=== PATIENT | female | born 1995 | race Caucasian/White ===

== ENCOUNTER 2023-05-17 09:00 | Outpatient (RCR) | payer BC, SELFPAY ==
[2023-05-17 08:07] VITALS: BMI 40.4
== END 2023-08-01 10:53 | disposition home or self-care (01) ==
LOC: ANHDMC 09:00
DX: O24.113 Pre-existing type 2 diabetes mellitus, in pregnancy, third trimester (principal); Z3A.32 32 weeks gestation of pregnancy; Z71.3 Dietary counseling and surveillance
CPT/HCPCS: 97802

== ENCOUNTER 2024-02-21 05:50 | Observation (INO) | payer BC, SELFPAY ==
[2024-02-21] VITALS (14 sets, daily range): BP systolic 97–130; BP diastolic 58–91; PULSE 56–81; RESP 12–20; TEMP 36.2–36.9; O2SAT 94–100; BMI 39.8
--- NOTE | ~2024-02-21 | CT_ITS ---
EXAMINATION: CT abdomen pelvis w con DATE: 02/21/2024 10:21 INDICATION: Abdominal pain. TECHNIQUE: Computed tomography (CT) of the abdomen and pelvis was performed with 100 mL Omnipaque 350 intravenous contrast. Automated exposure control and iterative reconstruction technique were employe d. The dose-length product was 1189.00 mGy-cm. COMPARISON: Ultrasound abdomen 02/21/24 FINDINGS: The visualized portions of the lung bases demonstrate minimal atelectasis. No pleural effus ion. The heart size is normal. No pericardial effusion. The liver and spleen are normal. The gallblad dennis is distended. Gallbladder wall thickening is noted. The pancreas, adrenal glands, and kidneys are normal. The appendix is normal. There are no dilated loops of bowel. There are no pathologically enl arged lymph nodes. There is no free intraperitoneal fluid. There is mild lumbar spondylosis. IMPRESSION: 1. Acute cholecystitis. Reviewed, dictated and finalized at location A. IMPRESSION: 1. Acute cholecystitis.
--- NOTE | ~2024-02-21 | US_ITS ---
Limited Abdominal Sonogram: Real-time sonographic imaging of the right upper quadrant was performed. Clinical History: Abdominal pain Findings: The liver appears normal with no evidence of mass lesion or bile duct dilatation. Main por evy vein demonstrates normal direction of flow. The gallbladder is well distended, and contains small layering gallstones. No bilateral thickening. The common bile duct measures 6 mm. The visualized pa ncreas, aorta, and IVC are unremarkable. Impression: Cholelithiasis. Reviewed, dictated and finalized at location M. Impression: Cholelithiasis.
--- NOTE | ~2024-02-21 | MR_ITS ---
EXAMINATION: MR MRCP wo/w con/w 3D wo ind DATE: 02/22/2024 11:39 INDICATION: Cholelithiasis. Abnormal liver function tests. TECHNIQUE: Magnetic resonance imaging (MRI) of the abdomen was performed without and with 20 mL Multi Toni intravenous contrast. Sequences included coronal T2-weighted FS FSE, coronal T2-weighted FSE, a xial T1-weighted LAVA, coronal FS FIESTA, axial dual-echo T1-weighted SPGR, coronal lava-FLEX, sagitt al T2-weighted FSE, axial T2-weighted FSE, and axial DWI. Thick-slab T2-weighted FSE images were obta ined for magnetic resonance cholangiopancreatography (MRCP). Maximum intensity projection 3-D reconst ructions of the volumetric data were created by the technologist. Postcontrast sequences included cor onal LAVA-flex and time course of axial T1-weighted LAVA. COMPARISON: CT abdomen and pelvis 02/21/2024 FINDINGS: ABDOMEN MRI: There is a trace right pleural effusion. The liver and spleen are normal. There are gall stones in the gallbladder, which is distended. Gallbladder wall thickening is noted. The pancreas, ad renal glands, and kidneys are normal. There are no dilated loops of bowel. There are no pathologicall y enlarged lymph nodes. There is no free intraperitoneal fluid. ABDOMEN MRCP: The common duct is normal and measures 5 mm. No choledocholithiasis. IMPRESSION: 1. Acute cholecystitis. 2. No choledocholithiasis. Reviewed, dictated and finalized at location A.
[2024-02-21 06:17] LABS: Basophils Percent Auto 0.3 % (0.2-1.2); Eosinophils Absolute Auto 0.1 K/mm3 (0-0.3); Hematocrit 42.8 % (37.0-47.0); Hemoglobin 14.7 g/dL (12.0-15.0); Immature Granulocyte Absolute 0.03 K/mm3 (0.00-0.031); Immature Granulocyte Percent A 0.3 % (0-0.5); Lymphocytes Absolute Auto 2.71 K/mm3 (0.9-3.2); Mean Corpuscular HGB Conc 34.3 g/dl (32-36); Mean Corpuscular Hemoglobin 29.9 pg (26-34); Mean Platelet Volume 8.9 fl (7.4-10.4); Monocytes Absolute Auto 0.5 K/mm3 (0.1-0.6); Monocytes Percent Auto 5.1 % (2.6-8.5); Neutrophils Percent Auto 64.3 % (45.5-73.1); Platelet Count Result 240 k/mm3 (150-375); Red Blood Count 4.92 M/mm3 (4.2-5.4); Red Cell Distribution Width 12.6 % (11.5-14.5); White Blood Count 9.3 K/mm3 (4.5-10.0)
[2024-02-21 06:25] LABS: Appearance Urine Clear (Clear); Bilirubin Urine Negative (Negative); Blood Urine Negative (Negative); Color Urine Yellow (Yellow); Glucose Urine UA Negative (Negative); Ketones Urine Trace mg/dL (Negative); Leukocyte Esterase Ur Negative LEU/UL (Negative); Nitrate Urine Negative (Negative); Protein Urine Negative (Negative); Specific Grav Ur 1.028 (1.001-1.035)
[2024-02-21 06:26] LABS: Alanine Aminotransferase 84 U/L (6-35); Alkaline Phosphatase 166 U/L (38-126); Anion Gap 6 mmol/L (4-12); Aspartate Amino Transferase 129 U/L (14-36); Bilirubin,Total 0.7 mg/dL (0.2-1.3); Blood Urea Nitrogen 21 mg/dL (7-17); Calcium 9.4 mg/dL (8.4-10.2); Carbon Dioxide 24 mmol/L (22-30); Chloride 107 mmol/L (98-107); Estimated CRCL calculation 136 ml/min; Estimated Glomerular Filt Rate > 60; Glucose 133 mg/dL (65-110); Lipase 58 U/L (23-300); Sodium 137 mmol/L (137-145)
[2024-02-21 06:34] LABS: Add Urine Microscopic? NO
--- NOTE | 2024-02-21 07:18 | ED.ABDPAIN ---
HPI - Abdominal Pain General Chief Complaint: Abdominal Pain Stated Complaint: abdominal pain Time Seen by Provider: 02/21/24 06:54 History of Present Illness HPI narrative: 28-year-old female presenting to the emergency department for evaluation intermittent upper abdominal pain. Patient just had a approximately 8 months ago and is currently . Patient denies any prior history of other abdominal surgeries other than the . Patient describes a worsening upper abdominal pain that is bilateral. patient initially declined any medications for pain control due to her Related Data Home Medications Medication Instructions Recorded Confirmed No Home Medications 02/21/24 02/21/24 Allergies Allergy/AdvReac Type Severity Reaction Status Date / Time No Known Allergies Allergy Verified 02/21/24 05:59 Review of Systems Review of Systems: All systems reviewed & are unremarkable except as noted in HPI and below PMFSH Social History Social History Smoking status: Never smoker Alcohol intake: current Drinks per week: 3 Substance use: former Substance use type: marijuana Do You Feel Safe in your Home?: Yes Lack of Transportation: No Lack of Food: Never True Current Housing: I Have Housing Concerned About Future Housing: No Difficulty Paying Gas/Electric Bills: No Difficulty Paying for Meds: No Currently Unemployed: No Education: Master's Degree or Higher Difficulty w/ Childcare or Family Care: No Spiritual care concerns: No Exam Narrative: APPEARANCE: Well appearing, no pain, no distress, well-nourished. HEAD: normocephalic, atraumatic. EYES: PERRLA/EOMI, conjunctivae clear. NOSE: Normal no drainage NECK: Supple. No adenopathy, no masses. RESPIRATORY: Airway patent, respirations nonlabored. Clear to auscultation bilaterally, no rales, rhonchi, wheezing. CARDIOVASCULAR: Regular rate and rhythm without murmurs rubs or gallops. ABDOMINAL: bilateral upper abdominal tenderness to palpation MUSCULOSKELETAL: Moves all extremities. Strength/ROM intact, No edema, No calf tenderness. NEURO: Alert. Cranial nerves II through XII intact. Good gait. Good coordination SKIN: Warm, dry. Normal Color Course Course Emergency Course: case was discussed with surgery had patient was admitted for concern of acute cholecystitis Vital Signs Vital signs: Vital Signs Temperature 98.5 F 02/21/24 05:52 Pulse Rate 77 02/21/24 05:52 Respiratory Rate 19 02/21/24 05:52 Blood Pressure 102/71 02/21/24 05:52 Pulse Oximetry 100 02/21/24 05:52 Oxygen Delivery Room Air 02/21/24 05:52 Temperature 97.8 F 02/21/24 12:30 Pulse Rate 60 02/21/24 12:30 Respiratory Rate 18 02/21/24 12:30 Blood Pressure 97/70 L 02/21/24 12:30 Pulse Oximetry 99 02/21/24 12:30 Oxygen Delivery Room Air 02/21/24 19:53 MDM - Abdominal Pain MDM Narrative Medical decision making narrative: 28-year-old female presenting to the emergency department for evaluation of multiple days so of right upper quadrant pain. Patient is afebrile with no leukocytosis and hemoglobin of 14.7. Patient did have some minor elevations in her AST ALT and alk-phos with normal lipase and normal T bili. No evidence of any urinary tract infection. Ultrasound showed cholelithiasis but due to the patient having persistent pain CT scan was ordered and did show evidence of acute cholecystitis. Case was discussed with surgery. Patient did not feel comfortable with the potential plan for discharge home and outpatient follow-up. Patient ultimately did require narcotic pain medication for pain control. Differential Diagnosis Differential diagnosis: Likely abdominal pain, acute appendicitis, calculus of kidney, constipation, diverticulitis, pancreatitis, small bowel obstruction and other ( Cholelithiasis, acute cholecystitis) Lab D
[2024-02-21] MEDS: PANTOPRAZOLE SODIUM IV 40 MG VIAL IV PUSH (07:31)
[2024-02-21] MEDS: ONDANSETRON INJ 4 MG/2 ML VIAL IV PUSH ×5 (07:31→23:54)
[2024-02-21] MEDS: SODIUM CHLORIDE 0.9% IV 1,000 ML 999 ML IV CONT (07:31)
[2024-02-21] MEDS: KETOROLAC 15 MG/ML VIAL (*BKC) IV PUSH (09:17)
[2024-02-21] MEDS: HYDROmorphone HCL INJ (*CRX) 1 MG/ML SYR IV PUSH (10:25)
[2024-02-21] MEDS: SODIUM CHLORIDE 0.9% IV 1,000 ML 125 ML IV CONT ×2 (11:40→19:52)
[2024-02-21] MEDS: PIPERACILLN/TAZ 3.375GM/NS50ML 3.375 GM/50 ML BAG IVPB ×3 (11:52→23:54)
--- NOTE | 2024-02-21 13:44 | PM.IMHP ---
H&P: HPI History of Present Illness Date/Time: 02/21/24 13:44 Chief Complaint: abdominal pain and cholelithiasis, acute cholecystitis. Narrative: Patient is a 28-year-old female who was admitted through the emergency room this morning complaining of a 2 to 3 day history of worsening right upper quadrant abdominal pain. She is 8 months . She is still breast-feeding. Did not have any symptoms of right upper quadrant pain or nausea with eating prior to her . Workup in emergency room showed a normal white blood cell count 9600. Liver enzymes were slightly elevated but her total bilirubin was normal. Abdominal ultrasound revealed some small gallstones and sludge but no pericholecystic fluid. CT scan abdomen pelvis was done showing a dilated gallbladder with very small amount of pericholecystic fluid but no phlegmon in the right upper quadrant. This was interpreted as acute cholecystitis. She did have a but no other abdominal surgery. Review of Systems Review of Systems: The remainder of the review of systems to include constitutional, HEENT, cardiovascular, respiratory, GI, , integumentary, musculoskeletal, endocrine, immunologic, hematologic, psychiatric, and neurologic are all negative except for which is mentioned above in the HPI. [facility] Social History Social History Spiritual care concerns: No Meds Home Medications and Allergies Allergies Allergy/AdvReac Type Severity Reaction Status Date / Time No Known Allergies Allergy Verified 02/21/24 05:59 Vital Signs Vital Signs - 24 hr 02/21/24 05:52 02/21/24 06:50 02/21/24 07:50 Temperature 36.9 C Pulse Rate 77 70 68 Respiratory Rate 19 18 16 Blood Pressure 102/71 108/73 130/86 Pulse Oximetry 100 99 100 Oxygen Delivery Room Air 02/21/24 08:01 02/21/24 08:22 02/21/24 08:45 Temperature Pulse Rate 81 65 64 Respiratory Rate 17 12 19 Blood Pressure 109/71 117/81 127/89 Pulse Oximetry 99 100 Oxygen Delivery 02/21/24 09:00 02/21/24 09:45 02/21/24 10:00 Temperature Pulse Rate 60 73 66 Respiratory Rate 13 15 12 Blood Pressure 117/85 112/91 H 113/76 Pulse Oximetry 100 98 98 Oxygen Delivery 02/21/24 10:25 02/21/24 11:00 02/21/24 11:21 Temperature Pulse Rate 76 63 65 Respiratory Rate 14 16 13 Blood Pressure 119/81 102/58 L Pulse Oximetry 99 94 95 Oxygen Delivery 02/21/24 12:30 Temperature 36.6 C Pulse Rate 60 Respiratory Rate 18 Blood Pressure 97/70 L Pulse Oximetry 99 Oxygen Delivery Exam Const: General: comfortable and no acute distress HENMT: Ears: TM's normal bilaterally Face/Nose/Sinus: Normal nares present Mouth: Yes moist mucous membranes Eyes: General: appearance normal, both eyes and all related structures Sclera: sclerae normal (No scleral icterus) Pupils: Equal, round and reactive pupils present EOM: EOMs intact bilaterally Neck: Neck: supple and no JVD Resp: Effort & Inspection: normal respiratory effort Auscultation: clear to auscultation bilaterally Cardio: Rate: regular rate Rhythm: regular rhythm GI: Other: Abdomen is soft obese. Mild tenderness to palpation right upper quadrant. Gallbladder is not palpable. No generalized peritoneal signs. No surgical scars aside from a low transverse Pfannenstiel scar which is well-healed without evidence of incisional hernia. Skin: General skin exam: normal color and no rashes or lesions noted Neuro: General: gait normal Speech: normal speech Motor exam (neuro): 5/5 motor strength present throughout Sensory Exam: normal sensation Extrem: General: normal to inspection Psych: Mental Status: mental status grossly normal Affect: normal affect H&P: Results Labs Labs: Short CBC 02/21/24 Range/Units 06:01 WBC 9.3 (4.5-10.0) K/mm3 Hgb 14.7 (12.0-15.0) g/dL Hct 42.8 (37.0-47.0) % Plt Count 240 (150-375) k/mm3 BMP
--- NOTE | 2024-02-21 16:54 | PC.NURSE ---
This patient, Larry Gale, was admitted to Medical Room 340-01. Patient/family oriented to hospital policies and general routines including ID bracelet, bed and alarms, visiting hours, pain management, procedures, bathroom and other care routines, personal items, smoking policy, room service/diet, and visiting hours. Information on how to activate the Rapid Response Team has been discussed. Patient/Family are encouraged to report perceived risks to care and to ask questions if they do not understand what they are told or what they should do.
[2024-02-21] MEDS: HYDROmorphone HCL INJ (*CRX) 1 MG/ML SYR 0.5 MG IV PUSH (21:37)
[2024-02-22] MEDS: HYDROmorphone HCL INJ (*CRX) 1 MG/ML SYR 0.5 MG IV PUSH ×5 (03:05→22:20)
[2024-02-22] MEDS: ONDANSETRON INJ 4 MG/2 ML VIAL IV PUSH ×3 (05:27→21:09)
[2024-02-22] MEDS: PIPERACILLN/TAZ 3.375GM/NS50ML 3.375 GM/50 ML BAG IVPB ×4 (05:29→23:28)
[2024-02-22 05:40] LABS: Basophils Percent Auto 0.5 % (0.2-1.2); Eosinophils Absolute Auto 0.1 K/mm3 (0-0.3); Eosinophils Percent Auto 1.7 % (0-4.4); Hematocrit 40.2 % (37.0-47.0); Hemoglobin 13.4 g/dL (12.0-15.0); Immature Granulocyte Absolute 0.02 K/mm3 (0.00-0.031); Immature Granulocyte Percent A 0.3 % (0-0.5); Lymphocytes Absolute Auto 1.84 K/mm3 (0.9-3.2); Lymphocytes Percent Auto 31.2 % (18.3-44.2); Mean Corpuscular HGB Conc 33.3 g/dl (32-36); Mean Corpuscular Volume 89.9 fl (80-100); Mean Platelet Volume 8.9 fl (7.4-10.4); Monocytes Absolute Auto 0.4 K/mm3 (0.1-0.6); Monocytes Percent Auto 6.4 % (2.6-8.5); Neutrophils Absolute Auto 3.5 K/mm3 (1.3-6.7); Neutrophils Percent Auto 59.9 % (45.5-73.1); Platelet Count Result 209 k/mm3 (150-375); Red Blood Count 4.47 M/mm3 (4.2-5.4); Red Cell Distribution Width 12.5 % (11.5-14.5); White Blood Count 5.9 K/mm3 (4.5-10.0)
[2024-02-22 05:49] LABS: INR 1.1; Prothrombin Time 14.9 Seconds (11.1-14.7)
[2024-02-22 05:54] LABS: Alanine Aminotransferase 749 U/L (6-35); Albumin Level 3.4 g/dL (3.5-5.1); Alkaline Phosphatase 239 U/L (38-126); Anion Gap 7 mmol/L (4-12); Aspartate Amino Transferase 525 U/L (14-36); Bilirubin,Total 3.1 mg/dL (0.2-1.3); Blood Urea Nitrogen 10 mg/dL (7-17); Calcium 8.2 mg/dL (8.4-10.2); Carbon Dioxide 20 mmol/L (22-30); Chloride 110 mmol/L (98-107); Estimated CRCL calculation 118 ml/min; Estimated Glomerular Filt Rate > 60; Glucose 78 mg/dL (65-110); Potassium 3.9 mmol/L (3.4-5.0); Sodium 137 mmol/L (137-145)
[2024-02-22 06:00] VITALS: BP 94/55; PULSE 77; RESP 18; TEMP 36.5; O2SAT 97
[2024-02-22] MEDS: SODIUM CHLORIDE 0.9% IV 1,000 ML 125 ML IV CONT ×3 (06:37→23:28)
[2024-02-22 08:20] LABS: Lipase 42 U/L (23-300)
[2024-02-22] MEDS: PANTOPRAZOLE SODIUM IV 40 MG VIAL IV PUSH (08:38)
--- NOTE | 2024-02-22 09:26 | WPDGICN ---
Assessment and Plan Assessment and plan (1) Elevated liver enzymes: Code(s): R74.8 - Abnormal levels of other serum enzymes Status: Acute Assessment and Plan: LFTs elevated on admission yesterday and trending upwards today with tbili 0.7->3.1, AST 129->525, ALT 84->749, alk phos 166->239 concerning for common bile duct stone. MRCP today, if stone present will need ERCP. (2) Acute cholecystitis: Code(s): K81.0 - Acute cholecystitis Status: Acute Assessment and Plan: followed by surgery GI Consult Note Consult date/time: 02/22/24 09:26 Reason for consult: Elevated T. Bili, eval for CBD stone HPI: Larry Gale is a 28 year old female who we were ask to see for evaluation of elevated liver function test. She presented to [place] [facility] yesterday for complaints of intermittent upper abdominal pain. Abdominal Ultrasound showed Cholelithiasis with small layering gallstones. CT ABD/Pelvis revealed acute cholecystitis no bile duct dilation noted. LFTs elevated on admission and trending upwards today with tbili 0.7->3.1, AST 129->525, ALT 84->749, alk phos 166->239. Lipase WNls. CBC negative for leukocytosis. She denies any prior hx of elevated LFTs. She rarely drinks alcohol and no hx of IV drug use. no family hx of chronic liver disease or cancers. Review of Systems Constitutional: Constitutional: Denies anorexia and Denies fatigue Eyes: Eyes: Denies change in vision ENT: Denies hoarseness Cardiovascular: Cardiovascular: Denies chest pain Respiratory: Respiratory: Denies cough Gastrointestinal: Gastrointestinal: Reports as per HPI Genitourinary: Genitourinary: Denies urinary frequency Musculoskeletal: Musculoskeletal: Denies abnormal gait and Denies myalgias Integumentary/Breasts: Skin/Breast: Denies rash and Denies jaundice Neurologic: Denies abnormal gait Psychiatric: Psychiatric: Denies change in appetite Endocrine: Endocrine: Denies fatigue Hematologic/Lymphatic: Hematologic/Lymphatic: Denies easy bruising Allergic/Immunologic: Allergic/Immunologic: Denies GI upset with certain foods PMFSH Past Medical History Medical History (Updated 02/22/24 @ 09:43 by Yolanda A. Bosaw, PATHOLOGIST-C) Elevated liver enzymes Social History Social History Smoking status: Never smoker Alcohol intake: current Drinks per week: 3 Substance use: former Substance use type: marijuana Do You Feel Safe in your Home?: Yes Lack of Transportation: No Lack of Food: Never True Current Housing: I Have Housing Concerned About Future Housing: No Difficulty Paying Gas/Electric Bills: No Difficulty Paying for Meds: No Currently Unemployed: No Education: Master's Degree or Higher Difficulty w/ Childcare or Family Care: No Spiritual care concerns: No Meds Home Medications and Allergies Home Medications Medication Instructions Recorded Confirmed Type No Home Medications 02/21/24 02/21/24 History Allergies Allergy/AdvReac Type Severity Reaction Status Date / Time No Known Allergies Allergy Verified 02/21/24 05:59 Vital Signs Vital Signs - 24 hr 02/21/24 09:45 02/21/24 10:00 02/21/24 10:25 Temperature Pulse Rate 73 66 76 Respiratory Rate 15 12 14 Blood Pressure 112/91 H 113/76 119/81 Pulse Oximetry 98 98 99 Oxygen Delivery 02/21/24 11:00 02/21/24 11:21 02/21/24 12:30 Temperature 97.8 F Pulse Rate 63 65 60 Respiratory Rate 16 13 18 Blood Pressure 102/58 L 97/70 L Pulse Oximetry 94 95 99 Oxygen Delivery 02/21/24 19:53 02/21/24 22:00 02/22/24 06:00 Temperature 97.2 F L 97.7 F Pulse Rate 56 L 77 Respiratory Rate 20 18 Blood Pressure 100/60 94/55 L Pulse Oximetry 98 97 Oxygen Delivery Room Air 02/22/24 09:15 Temperature Pulse Rate Respiratory Rate Blood Pressure Pulse Oximetry Oxygen Delivery Room Air Exam Const: General: co
--- NOTE | 2024-02-22 11:42 | PC.NURSE ---
Patient returned from MRI per wheelchair.
--- NOTE | 2024-02-22 13:54 | WPDPN ---
Progress Note: A&P Assessment and Plan (1) Acute cholecystitis: Code(s): K81.0 - Acute cholecystitis Status: Acute Assessment and Plan: Patient continues IV antibiotics. Her pain is not any worse. Blood count is normal. Her laparoscopic cholecystectomy today was canceled liver enzymes markedly elevated. MRCP has been done showing no evidence of retained common bile stone although I suspect she passed a stone last evening. Will reschedule her lap ozzie for tomorrow afternoon. (2) Elevated liver enzymes: Code(s): R74.8 - Abnormal levels of other serum enzymes Status: Acute Assessment and Plan: MRCP performed and no evidence of retained common duct stone presently. May have passed a stone. Continue supportive management. We will proceed with laparoscopic cholecystectomy tomorrow. Continue IV antibiotics. Recheck liver enzymes tomorrow. Subjective Date/time seen: 02/22/24 13:54 Interval history: Patient still having some right upper quadrant abdominal pain. Continues to be NPO except for some ice chips. White blood cell count is normal however her liver enzymes markedly elevated today. Her bilirubin went from 0.7 to 3.1. AST, ALT, and alkaline phosphatase all elevated as well. All suspicious she had a common bile duct stone which was retained or she had passed a common bile duct stone. Consulted GI to see the patient and an MRCP was ordered. The results of the MRCP showed no evidence of retained common bile stone presently. Residual cholelithiasis and sludge is noted. Exam GI: Other: Abdomen is soft and moderately obese. Mild tenderness to palpation right upper quadrant. The gallbladder is not palpable. No peritoneal signs. Objective Data Vital Signs Vital Signs: Vital Signs - 24 hr 02/21/24 19:53 02/21/24 22:00 02/22/24 06:00 Temperature 36.2 C L 36.5 C Pulse Rate 56 L 77 Respiratory Rate 20 18 Blood Pressure 100/60 94/55 L Pulse Oximetry 98 97 Oxygen Delivery Room Air 02/22/24 09:15 Temperature Pulse Rate Respiratory Rate Blood Pressure Pulse Oximetry Oxygen Delivery Room Air Intake/Output Intake/Output: Intake & Output 02/19/24 02/20/24 02/21/24 02/22/24 23:59 23:59 23:59 23:59 Intake Total 2100 1150 Balance 2100 1150 Meds/Results Medications: Active Medications Generic Name Dose Route Start Last Admin Trade Name Nikq PRN Reason Stop Dose Admin Enoxaparin Sodium 40 mg 02/22/24 09:00 02/22/24 07:57 Enoxaparin 40 Mg/0.4 Ml Syringe SUB-Q Not Given DAILY GINNY Hydromorphone HCl 0.5 mg 02/21/24 11:12 02/22/24 09:22 Hydromorphone Hcl Inj (*Crx) 1 Mg/Ml Syr IV PUSH 0.5 mg Q4H PRN Administration Pain Rated 7-10 Piperacillin/Tazobactam/Dextrose 3.375 gm in 50 mls @ 100 mls/hr 02/21/24 12:00 02/22/24 12:35 Zosyn 3.375 Gm/Ns 50 Ml IVPB Infused Q6HR GINNY Infusion Sodium Chloride 1,000 mls @ 125 mls/hr 02/21/24 11:15 02/22/24 13:44 Normal Saline Iv IV CONT Not Given .Q8H GINNY Ondansetron HCl 4 mg 02/21/24 11:12 02/22/24 05:27 Ondansetron Inj 4 Mg/2 Ml Vial IV PUSH 4 mg Q4H PRN Administration Nausea Pantoprazole Sodium 40 mg 02/22/24 09:00 02/22/24 08:38 Pantoprazole Sodium Iv 40 Mg Vial IV PUSH 40 mg QAM GINNY Administration Radiology Results: ITS Impressions Abdomen Ultrasound 02/21/24 08:14 Impression: Cholelithiasis. Abdomen/Pelvis CT 02/21/24 10:29 IMPRESSION: 1. Acute cholecystitis. MRCP 02/22/24 13:05 IMPRESSION: 1. Acute cholecystitis. 2. No choledocholithiasis. Labs Labs: Laboratory Results - last 24 hr 02/22/24 02/22/24 05:19 05:20 WBC 5.9 RBC 4.47 Hgb 13.4 Hct 40.2 MCV 89.9 MCH 30.0 MCHC 33.3 RDW 12.5 Plt Count 209 MPV 8.9 Immature Gran % (Auto) 0.3 Neut % (Auto) 59.9 Lymph % (Auto) 31.2 [place] % (Auto) 6.4 Eos % (Auto) 1.7 Baso % (Auto) 0.5 Lymph # (
[2024-02-22 14:00] VITALS: BP 94/50; PULSE 76; RESP 16; TEMP 36.4; O2SAT 99
[2024-02-22 19:22] LABS: Hepatitis B Surface Antigen Negative (Negative)
[2024-02-22 19:28] LABS: HAV RESULT Negative (Negative); Hepatitis B Core IgM Result Negative (Negative)
[2024-02-22 19:40] LABS: Hepatitis C Virus Antibody Negative (Negative)
[2024-02-22 22:18] VITALS: BP 102/55; PULSE 57; RESP 20; TEMP 36.6; O2SAT 98
[2024-02-23] VITALS (11 sets, daily range): BP systolic 91–128; BP diastolic 48–89; PULSE 57–98; RESP 16–21; TEMP 36.2–36.8; O2SAT 95–100
[2024-02-23] MEDS: HYDROmorphone HCL INJ (*CRX) 1 MG/ML SYR 0.5 MG IV PUSH ×3 (03:58→20:50)
[2024-02-23] MEDS: PIPERACILLN/TAZ 3.375GM/NS50ML 3.375 GM/50 ML BAG IVPB ×2 (05:33→12:08)
[2024-02-23 05:41] LABS: Basophils Percent Auto 0.5 % (0.2-1.2); Eosinophils Absolute Auto 0.1 K/mm3 (0-0.3); Eosinophils Percent Auto 1.7 % (0-4.4); Hematocrit 39.2 % (37.0-47.0); Hemoglobin 13.5 g/dL (12.0-15.0); Immature Granulocyte Absolute 0.01 K/mm3 (0.00-0.031); Immature Granulocyte Percent A 0.2 % (0-0.5); Lymphocytes Absolute Auto 2.13 K/mm3 (0.9-3.2); Lymphocytes Percent Auto 36.6 % (18.3-44.2); Mean Corpuscular HGB Conc 34.4 g/dl (32-36); Mean Corpuscular Hemoglobin 30.8 pg (26-34); Mean Corpuscular Volume 89.5 fl (80-100); Monocytes Absolute Auto 0.4 K/mm3 (0.1-0.6); Monocytes Percent Auto 7.6 % (2.6-8.5); Neutrophils Absolute Auto 3.1 K/mm3 (1.3-6.7); Neutrophils Percent Auto 53.4 % (45.5-73.1); Platelet Count Result 211 k/mm3 (150-375); Red Blood Count 4.38 M/mm3 (4.2-5.4); Red Cell Distribution Width 12.5 % (11.5-14.5); White Blood Count 5.8 K/mm3 (4.5-10.0)
[2024-02-23 06:02] LABS: Alanine Aminotransferase 513 U/L (6-35); Albumin Level 3.4 g/dL (3.5-5.1); Alkaline Phosphatase 241 U/L (38-126); Anion Gap 8 mmol/L (4-12); Aspartate Amino Transferase 158 U/L (14-36); Bilirubin,Total 1.5 mg/dL (0.2-1.3); Blood Urea Nitrogen 6 mg/dL (7-17); Calcium 8.3 mg/dL (8.4-10.2); Carbon Dioxide 18 mmol/L (22-30); Chloride 110 mmol/L (98-107); Estimated CRCL calculation 118 ml/min; Estimated Glomerular Filt Rate > 60; Glucose 81 mg/dL (65-110); Potassium 3.9 mmol/L (3.4-5.0); Sodium 136 mmol/L (137-145)
[2024-02-23] MEDS: PANTOPRAZOLE SODIUM IV 40 MG VIAL IV PUSH (08:06)
[2024-02-23] MEDS: SODIUM CHLORIDE 0.9% IV 1,000 ML 125 ML IV CONT ×2 (08:07→20:49)
--- NOTE | 2024-02-23 12:41 | WPDPN ---
Progress Note: A&P Assessment and Plan (1) Elevated liver enzymes: Code(s): R74.8 - Abnormal levels of other serum enzymes Status: Acute Assessment and Plan: LFTs are not decreasing. She likely was passing a common bile duct stone yesterday. MRCP negative for retained common duct stone. (2) Acute cholecystitis: Code(s): K81.0 - Acute cholecystitis Status: Acute Assessment and Plan: Will proceed with a laparoscopic cholecystectomy possible open cholecystectomy in the operating room today. Risks, benefits, indications, and expected outcomes were discussed with the patient and/or family members. Specific risks to include bleeding and possible need for blood transfusion, infection, bile leak, injury to other organs, common bile duct injury, and conversion to open cholecystectomy has been discussed. I have answered all their questions and they agreed to proceed with surgery as outlined above. Subjective Date/time seen: 02/23/24 12:41 Interval history: Patient still having right upper quadrant abdominal pain. No epigastric pain. MRCP yesterday showed no dilation of the common bile duct and no retained common bile duct stone. Her total bilirubin other liver enzymes have decreased today and so she likely was passing a gallstone yesterday. White blood cell count remains normal today. She tried to tolerate some liquids lasting min had right upper quadrant pain and nausea. Exam GI: Other: Abdomen is soft and moderately obese. Moderate tenderness to palpation right upper quadrant over the area the gallbladder. No guarding or peritoneal signs. Objective Data Vital Signs Vital Signs: Vital Signs - 24 hr 02/22/24 14:00 02/22/24 19:43 02/22/24 22:18 Temperature 36.4 C L 36.6 C Pulse Rate 76 57 L Respiratory Rate 16 20 Blood Pressure 94/50 L 102/55 L Pulse Oximetry 99 98 Oxygen Delivery Room Air 02/23/24 06:00 02/23/24 08:05 Temperature 36.2 C L Pulse Rate 57 L Respiratory Rate 21 H Blood Pressure 110/63 Pulse Oximetry 100 Oxygen Delivery Room Air Intake/Output Intake/Output: Intake & Output 02/20/24 02/21/24 02/22/24 02/23/24 23:59 23:59 23:59 23:59 Intake Total 2100 4109.2 1050 Balance 2100 4109.2 1050 Meds/Results Medications: Active Medications Generic Name Dose Route Start Last Admin Trade Name Freq PRN Reason Stop Dose Admin Enoxaparin Sodium 40 mg 02/22/24 09:00 02/23/24 08:07 Enoxaparin 40 Mg/0.4 Ml Syringe SUB-Q Not Given DAILY GINNY Hydromorphone HCl 0.5 mg 02/21/24 11:12 02/23/24 12:08 Hydromorphone Hcl Inj (*Crx) 1 Mg/Ml Syr IV PUSH 0.5 mg Q4H PRN Administration Pain Rated 7-10 Piperacillin/Tazobactam/Dextrose 3.375 gm in 50 mls @ 100 mls/hr 02/21/24 12:00 02/23/24 12:08 Zosyn 3.375 Gm/Ns 50 Ml IVPB 100 mls/hr Q6HR GINNY Administration Sodium Chloride 1,000 mls @ 125 mls/hr 02/21/24 11:15 02/23/24 08:07 Normal Saline Iv IV CONT 125 mls/hr .Q8H GINNY Administration Ondansetron HCl 4 mg 02/21/24 11:12 02/22/24 21:09 Ondansetron Inj 4 Mg/2 Ml Vial IV PUSH 4 mg Q4H PRN Administration Nausea Pantoprazole Sodium 40 mg 02/22/24 09:00 02/23/24 08:06 Pantoprazole Sodium Iv 40 Mg Vial IV PUSH 40 mg QAM GINNY Administration Radiology Results: ITS Impressions Abdomen Ultrasound 02/21/24 08:14 Impression: Cholelithiasis. Abdomen/Pelvis CT 02/21/24 10:29 IMPRESSION: 1. Acute cholecystitis. MRCP 02/22/24 13:05 IMPRESSION: 1. Acute cholecystitis. 2. No choledocholithiasis. Labs Labs: Laboratory Results - last 24 hr 02/22/24 02/23/24 06:01 05:16 WBC 5.8 RBC 4.38 Hgb 13.5 Hct 39.2 MCV 89.5 MCH 30.8 MCHC 34.4 RDW 12.5 Plt Count 211 MPV 9.0 Immature Gran % (Auto) 0.2 Neut % (Auto) 53.4 Lymph % (Auto) 36.6 [place] % (Auto) 7.6 Eos % (Auto) 1.7 Baso % (Auto) 0.5 Lymph # (Auto) 2.1
--- NOTE | 2024-02-23 12:44 | WPDHPUPDATE1 ---
History and Physical Update Update Date/Time: 02/23/24 12:44 History and Physical has been reviewed, including an updated exam of the patient. There are NO changes in the patient's condition. Risks, benefits, and alternatives have been discussed and questions answered. Patient agrees to proceed with procedure.
--- NOTE | 2024-02-23 14:30 | PC.NURSE ---
Patient to OR per wheelchair.
[2024-02-23] MEDS: LACTATED RINGERS 1,000 ML 30 ML IV CONT ×2 (14:45→17:00)
--- NOTE | 2024-02-23 14:46 | WPDANESEPPF ---
Anes - Initial Pre Proc Eval Procedure: Operation Date: 02/22/24 13:00 Proposed Procedures p Laparoscopic Cholecystectomy,Possible Open - Nayan Medellin MD Operation Date: 02/23/24 15:30 Proposed Procedures p Laparoscopic Cholecystectomy, Possible Open - Nayan Medellin MD Date/Time: 02/23/24 14:46 Surgeon: Nayan Medellin MD Pre Op Diagnosis: Right Upper Quadrant Abd Pain/Acute Cholecystitis Patient Data Age: 28 Gender: F Height: 1.6 m Weight: 102 kg Last Vital Signs Temp 36.2 C L 02/23/24 06:00 Pulse 57 L 02/23/24 06:00 Resp 21 H 02/23/24 06:00 BP 110/63 02/23/24 06:00 Pulse Ox 100 02/23/24 06:00 O2 Del Method Room Air 02/23/24 08:05 Allergies Allergy/AdvReac Type Severity Reaction Status Date / Time No Known Allergies Allergy Verified 02/21/24 05:59 Home Medications Medication Instructions Recorded Confirmed Type No Home Medications 02/21/24 02/21/24 History Laboratory Tests 02/22/24 02/23/24 06:01 05:16 WBC 5.8 K/mm3 (4.5-10.0) RBC 4.38 M/mm3 (4.2-5.4) Hgb 13.5 g/dL (12.0-15.0) Hct 39.2 % (37.0-47.0) MCV 89.5 fl (80-100) MCH 30.8 pg (26-34) MCHC 34.4 g/dl (32-36) RDW 12.5 % (11.5-14.5) Plt Count 211 k/mm3 (150-375) MPV 9.0 fl (7.4-10.4) Immature Gran % (Auto) 0.2 % (0-0.5) Neut % (Auto) 53.4 % (45.5-73.1) Lymph % (Auto) 36.6 % (18.3-44.2) Gove % (Auto) 7.6 % (2.6-8.5) Eos % (Auto) 1.7 % (0-4.4) Baso % (Auto) 0.5 % (0.2-1.2) Lymph # (Auto) 2.13 K/mm3 (0.9-3.2) Gove # (Auto) 0.4 K/mm3 (0.1-0.6) Eos # (Auto) 0.1 K/mm3 (0-0.3) Baso # (Auto) 0.0 K/mm3 (0.0-0.1) Abs Immat Gran (auto) 0.01 K/mm3 (0.00-0.031) Absolute Neuts (auto) 3.1 K/mm3 (1.3-6.7) Absolute Nucleated RBC 0.000 K/mm3 (0.0-0.012) Nucleated RBC % 0.0 % (0.0-0.2) Sodium 136 L mmol/L (137-145) Potassium 3.9 mmol/L (3.4-5.0) Chloride 110 H mmol/L (98-107) Carbon Dioxide 18 L mmol/L (22-30) Anion Gap 8 mmol/L (4-12) BUN 6 L mg/dL (7-17) Creatinine 0.70 mg/dL (0.7-1.0) Estim Creat Clear Calc 118 ml/min Estimated GFR > 60 (59 - ) Glucose 81 mg/dL (65-110) Calcium 8.3 L mg/dL (8.4-10.2) Total Bilirubin 1.5 H mg/dL (0.2-1.3) AST 158 H U/L (14-36) ALT 513 H U/L (6-35) Alkaline Phosphatase 241 H U/L (38-126) Total Protein 6.0 L g/dL (6.3-8.2) Albumin 3.4 L g/dL (3.5-5.1) Hepatitis A IgM Ab Negative (Negative) Hep Bs Antigen Negative (Negative) Hep B Core IgM Ab Negative (Negative) Hepatitis C Ab Screen Negative (Negative) Patient hx anesthesia problems: none Family hx anesthesia problems: none Results Review: All pre-operative results and documents have been reviewed as part of the pre-operative evaluation. [facility] Past Medical History Medical History (Updated 02/23/24 @ 14:46 by Luis Daniel Denis MD) Elevated liver enzymes Morbid obesity Social History Social History Smoking status: Never smoker Alcohol intake: current Drinks per week: 3 Substance use: former Substance use type: marijuana Do You Feel Safe in your Home?: Yes Lack of Transportation: No Lack of Food: Never True Current Housing: I Have Housing Concerned About Future Housing: No Difficulty Paying Gas/Electric Bills: No Difficulty Paying for Meds: No Currently Unemployed: No Education: Master's Degree or Higher Difficulty w/ Childcare or Family Care: No Spiritual care concerns: No Anes - Eval Final PreProcedure Day of Procedure 02/23/24 14:46 Patient weight: morbidly obese Heart: regular rate and rhythm Lungs: clear to auscultation Airwa
--- NOTE | 2024-02-23 16:10 | WPDGIPROGNO ---
Progress Note: A&P Assessment and Plan (1) Acute cholecystitis: Code(s): K81.0 - Acute cholecystitis Status: Acute Assessment and Plan: OR today, MRCP reviewed and no bile duct stones- no need of ercp liver enzymes trending down (2) Elevated liver enzymes: Code(s): R74.8 - Abnormal levels of other serum enzymes Status: Acute (3) RUQ pain: Code(s): R10.11 - Right upper quadrant pain Status: Acute (4) state: Code(s): Z39.2 - Encounter for routine follow-up Status: Acute (5) Nausea: Code(s): R11.0 - Nausea Status: Acute Subjective Date/time seen: 02/23/24 11:50 Interval history: still some pain in ruq Review of Systems Review of Systems: All systems reviewed & are unremarkable except as noted in HPI and below Exam Const: General: comfortable and no acute distress HENMT: Face/Nose/Sinus: Normal nares present Eyes: General: appearance normal, both eyes and all related structures Neck: Neck: supple Resp: Auscultation: clear to auscultation bilaterally Cardio: Rate: regular rate Rhythm: regular rhythm GI: Inspection: non-distended GI Palp: Yes Soft to palpation and Yes Tenderness to palpation present (GI) (mild ttp in ruq) Auscultation: normal bowel sounds Skin: General skin exam: normal color Neuro: General: gait normal Speech: normal speech Extrem: General: normal to inspection Psych: Mental Status: mental status grossly normal Objective Data Vital Signs Vital Signs: Vital Signs - 24 hr 02/22/24 19:43 02/22/24 22:18 02/23/24 06:00 Temperature 97.8 F 97.1 F L Pulse Rate 57 L 57 L Respiratory Rate 20 21 H Blood Pressure 102/55 L 110/63 Pulse Oximetry 98 100 Oxygen Delivery Room Air 02/23/24 08:05 02/23/24 14:35 Temperature 97.7 F Pulse Rate 64 Respiratory Rate 16 Blood Pressure 107/60 Pulse Oximetry 99 Oxygen Delivery Room Air Room Air Intake/Output Intake/Output: Intake & Output 02/20/24 02/21/24 02/22/24 02/23/24 23:59 23:59 23:59 23:59 Intake Total 2099 4109.2 1100 Balance 2100 4109.2 1100 Meds/Results Medications: Active Medications Generic Name Dose Route Start Last Admin Trade Name Freq PRN Reason Stop Dose Admin Enoxaparin Sodium 40 mg 02/22/24 09:00 02/23/24 08:07 Enoxaparin 40 Mg/0.4 Ml Syringe SUB-Q Not Given DAILY GINNY Fentanyl Citrate 25 mcg 02/23/24 14:47 Fentanyl Citrate Inj (*Crx) 100 Mcg/2 Ml Vial IV PUSH Q2M PRN Pain Hydromorphone HCl 0.5 mg 02/21/24 11:12 02/23/24 12:08 Hydromorphone Hcl Inj (*Crx) 1 Mg/Ml Syr IV PUSH 0.5 mg Q4H PRN Administration Pain Rated 7-10 Piperacillin/Tazobactam/Dextrose 3.375 gm in 50 mls @ 100 mls/hr 02/21/24 12:00 02/23/24 12:38 Zosyn 3.375 Gm/Ns 50 Ml IVPB Infused Q6HR GINNY Infusion Sodium Chloride 1,000 mls @ 125 mls/hr 02/21/24 11:15 02/23/24 14:30 Normal Saline Iv IV CONT 0 mls/hr .Q8H GINNY Infusion Lactated Ringer's 1,000 mls @ 30 mls/hr 02/23/24 14:45 02/23/24 14:45 Lr - Lactated Ringers Iv IV CONT 30 mls/hr .Q24H GINNY Administration Lactated Ringer's 1,000 mls @ 30 mls/hr 02/23/24 14:50 Lr - Lactated Ringers Iv IV CONT .Q24H GINNY Ondansetron HCl 4 mg 02/21/24 11:12 02/22/24 21:09 Ondansetron Inj 4 Mg/2 Ml Vial IV PUSH 4 mg Q4H PRN Administration Nausea Ondansetron HCl 4 mg 02/23/24 14:47 Ondansetron Inj 4 Mg/2 Ml Vial IV PUSH ONCE PRN Nausea Oxycodone HCl 5 mg 02/23/24 14:47 Oxycodone Hcl (*Crx) 5 Mg Tab Ir PO ONCE PRN Pain Pantoprazole Sodium 40 mg 02/22/24 09:00 02/23/24 08:06 Pantoprazole Sodium Iv 40 Mg Vial IV PUSH 40 mg QAM GINNY Administration Radiology Results: ITS Impressions Abdomen Ultrasound 02/21/24 08:14 Impression: Cholelithiasis. Abdomen/Pelvis CT 02/21/24 10:29 IMPRESSION: 1. Acute cholecystitis. MRCP
[2024-02-23] MEDS: LIDO 1%/EPINEPHRINE 1:100,000 50 ML VIAL 15 ML INFILTRATE (16:26)
[2024-02-23] MEDS: BUPivacaine HCL 0.5% 10 ML AMP 15 ML INFILTRATE (16:27)
--- NOTE | 2024-02-23 16:53 | W.PM.PROC2 ---
Procedure Note - Detailed Date of Procedure 02/23/24 Pre-op Diagnosis Right Upper Quadrant Abd Pain/Acute Cholecystitis Post-op Diagnosis Same Procedure Performed Laparoscopic cholecystectomy Surgeon Nayan Medellin MD Studio Operator MELODIE Wayne Anesthesia General Indications Patient is a 28-year-old female who is 8 months who presented emergency room with 2 to 3 day history of worsening right upper quadrant abdominal pain associated with some nausea and vomiting and radiation of pain to her back. Upon admission white blood count was normal. Liver enzymes were normal as well. CT scan abdomen pelvis showed dilated gallbladder was small amount of gallbladder wall edema. Abdominal ultrasound showed gallstones gallbladder sludge. The day after she was admitted to the hospital her liver enzymes markedly elevated with a total bilirubin going to 3.1 from 0.7 and AST, ALT, and ALT double or tripling in number. It was suspected that she might have a retained common bile duct stone. Dr. Thomson from GI was consulted and he ordered an MRCP. The MRCP showed no evidence of retained common bile duct stone. She likely passed a common bile duct stone causing the rapid increase in her liver enzymes. Lipase was normal she did not develop gallstone pancreatitis. She is brought to the operating now for laparoscopic cholecystectomy. Findings The gallbladder was edematous and distended. There were no adhesions of the omentum, duodenum, or stomach to the gallbladder. It was mildly inflamed. Small gallstones were palpated within the gallbladder after was removed. Description of Procedure After informed consent was obtained patient brought to the operating room she was placed supine position and general endotracheal anesthesia was administered. The abdomen was then prepped and draped usual sterile fashion. A time-out was then performed correctly identifying the patient as well as procedure to be performed. She was already on scheduled IV antibiotics. I 1st started by entering the abdomen left upper quadrant utilizing a 5mm Optiview port. Once inside the abdomen insufflated to adequate pneumoperitoneum of 15mmHg of CO2. I then placed a 5mm periumbilical trocar port and a 10mm epigastric trocar port and 2 right lateral subcostal 5mm trocar ports all under direct visualization. The gallbladder was visualized and it was dilated and the wall was mildly hyperemic and edematous. The patient definitely had mild acute cholecystitis. No adhesions of the gallbladder to the duodenum, stomach, or omentum. I held the gallbladder at the dome and elevated the gallbladder over the right half liver toward the right shoulder. A 2nd grasper used all the gallbladder at the infundibulum. I then proceeded to dissect down on infundibulum of the gallbladder stripping down the visceroperitoneum until I identified the cystic duct. The cystic duct was then dissected out circumferentially. The cystic artery was identified posterior medial to the cystic duct and I dissected this structure out circumferentially as well. The posterior wall the gallbladder at the infundibulum dissected free liver into the critical view was obtained. At this point I then placed 2 clips proximally cystic duct and 2 clips distally on the infundibular gallbladder. The cystic duct was divided with Endo Nazario. In a similar fashion cystic artery was clipped and divided as well. The gallbladder was then resected off of the liver utilizing electrocautery. There were no stones or bile spilled during the removal of the gallbladder. The gallbladder was then placed into an Endo-Catch bag and brought out through the epigastric port site. Gallbladder stones within were sent to pathology for examination I then irrigated out the right upper quadrant the abdomen the gallbladder fossa with copious sterile saline solution. Hemostasis was excellent. I then aspirated the fluid from the right upper quadrant from the pelvis
[2024-02-23] MEDS: ONDANSETRON INJ 4 MG/2 ML VIAL IV PUSH ×2 (17:18→20:50)
[2024-02-23] MEDS: diphenhydrAMINE HCl INJ 50 MG/ML VIAL 12.5 MG IV PUSH ×2 (17:31→17:45)
[2024-02-23] MEDS: HALOPERIDOL LACTATE 5 MG/ML VIAL IV PUSH (18:08)
--- NOTE | 2024-02-23 18:35 | PC.NURSE ---
Patient returned from OR per stretcher.
[2024-02-23] MEDS: oxyCODONE HCL (*CRX) 5 MG TAB IR PO (18:59)
[2024-02-24] MEDS: oxyCODONE HCL (*CRX) 5 MG TAB IR PO ×2 (01:02→06:48)
[2024-02-24] MEDS: SODIUM CHLORIDE 0.9% IV 1,000 ML 125 ML IV CONT (04:39)
[2024-02-24] MEDS: HYDROcodone/acetaminophen (*CRX) 5-325 MG TABLET 1 TAB PO (04:41)
[2024-02-24 06:00] VITALS: BP 103/61; PULSE 86; RESP 20; TEMP 36.9; O2SAT 99
--- NOTE | 2024-03-08 12:38 | PM.DS ---
DS: Admitting Diagnosis Discharge Date 02/24/24 Admitting Diagnosis Acute cholecystitis secondary to cholelithiasis, elevated total bilirubin DS: Summary Hospital Course Reason for hospitalization: Right upper quadrant abdominal pain elevated liver enzymes Hospital Course: Patient is a 28-year-old female who was admitted to the hospital through the emergency room complaining of a 2 to 3 day history of worsening right upper quadrant epigastric abdominal pain. Her workup in emergency room showed a normal white blood cell count but some mild elevation of her total bilirubin up to 3.1. She had no jaundice. Imaging of the gallbladder showed some minimal edema of the gallbladder wall but gallstones. Common bile duct was not particularly dilated on Initial imaging. She was admitted to the hospital started on IV antibiotics. GI was consult to see her and they recommend getting an MRCP. She was kept NPO overnight and then the next day her pain was improved and are MRCP was done. This showed no evidence of retained common bile duct stone. She was then allowed to have clear liquids that evening. She was then kept NPO after midnight and then taken to the operating room the next day for an uncomplicated laparoscopic cholecystectomy. Postoperatively she did well. Her liver enzymes were checked and they were down trending to normal. All IV antibiotics were stopped and she was given a order to advance diet as tolerated. She did very well in all incisions are healing well. She was afebrile and tolerated and regular diet at time of discharge. Status at Discharge Functional status at discharge: independent ambulation Overall status at discharge: patient is back to baseline Time Spent with Patient Time attestation: Total time spent providing and/or coordinating discharge services: Time spent: Less than 30 minutes Exam GI: Other: Abdomen is soft and nondistended. Port site incisions are healing well. No redness or drainage. No right upper quadrant tenderness. Benign exam. DS: Data Data Completed and Pending Completed studies during hospitalization: Pending at discharge 02/23/24 16:12 Surgical [PTH] Routine Discharge Plan Discharge Attending physician on discharge: Nayan Medellin Consulting providers: Mateo Balderas; Yolanda Jay; Alex Tineo; Oscar Rios V.; Luis Daniel Denis Discharging Clinician: Nayan Medellin Anticipated Discharge Date/Time: 02/23/24 17:02 Patient Disposition: Home, Self-Care Activity: other - see discharge instructions Diet: other - see discharge instructions Discharge Instructions: Patient may discharge home when tolerating solid food without nausea vomiting and without significant abdominal pain needing any IV narcotics. If pain is well controlled with oral [id number] medications or narcotics that she may discharge home. Patient to follow-up see me in my office in 2 weeks. Patient to call [phone] for an appointment. No lifting more than 10 or 15lb for the next 2 weeks. She may shower tomorrow but no soaking of the incision under water for the next 2 weeks[address] driving for at least 3 days or until she is no longer taking narcotic pain medications. Patient may resume in 24hours. Patient may use Tylenol and/or ibuprofen [id number] as needed for pain. 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 May also use Tylenol and/or ibuprofen in between doses of narcotic pain medications if needed. Patient Instructions: Antibiotic Form Stand Alone Forms: General Discharge Information Follow-up/Referrals: Nayan Medellin MD [Physician] - Date of admission: 02/21/24 11:12 Primary Care Provider: UNKNOWN,DOCTOR Admitting Provider: Nayan Medellin Attending physician on admission: Nayan Medellin Condition: Stable
== END 2024-02-24 09:32 | disposition home or self-care (01) ==
LOC: ANHED 11:12 → ANH3MED 11:50
PROVIDERS: Nurse Practitioner Family; Student in an Organized Health Care Education/Training Program; Admitting Provider Surgery; Emergency Provider Emergency Medicine; Visit Provider Surgery
PROC: 0FT44ZZ Resection of Gallbladder, Percutaneous Endoscopic Approach (ICD-10-PCS; CPT 47562; principal; 2024-02-23 15:30)
DX: K80.10 Calculus of gallbladder with chronic cholecystitis without obstruction (principal); R74.8 Abnormal levels of other serum enzymes; R11.0 Nausea
CPT/HCPCS: 47562; 36415; 74177; 74183; 76376; 76705; 80053; 80074; 81003; 81025; 83690; 85025; 85610; 86850; 86900; 86901; 87040; 88304; 96361; 96365; 96375; 96376; 99285; A9270; A9577; C9113; G0378; J1100; J1170; J1200; J1630; J1885; J2250; J2405; J2543; J2704; J3010; J7030; J7120; Q9967